=== PATIENT | male | born 1940 | race Caucasian/White ===

== ENCOUNTER → 2017-07-07 | Outpatient (CLI) | payer MEDICARE, MEDICAID ==
[~2017-07-07] MED LIST: ACETAMINOPHEN500 M3 PO; ALBUTEROL2.5 MG/NEB IN; ALBUTEROL2.5 MG/NEB INH; BISAC-EVAC10 MG PR; CALCIUM 600600 M2 PO; CALCIUM WITH V1 EAC1 PO; FLOMAX 0.4MG C0.4 MG PO; IPRATROPIUM BROM3 M1 IH; NAMENDA XR28 MG PO; PANTOPRAZOLE SO40 MG PO; PHENADOZ25 MG PR; PHENERGAN25 M3 PO; PREDNISONE 10MG10 MG PO; PROMETHAZINE25 MG PR; PROSCAR 5MG TABL5 MG PO; PROTONIX 40MG T40 MG PO; ROBAFEN100 MG/5 M PO; SPIRIVA HA1 PUFF/INH IH; SYMBICORT 10.10.2 M1 IH; TAMSULOSIN HYD0.4 MG PO
== END ==
LOC: LAB 14:19
DX: J11.1 Influenza due to unidentified influenza virus with other respiratory manifestations (principal)